=== PATIENT | male | born 1985 | race Caucasian/White ===

== ENCOUNTER 2017-07-25 07:50 | Day surgery (SDC) | payer OTHER ==
[~2017-07-25 07:50] MED LIST: Lactated Ringers 1,000 ML IV SCH; Sodium Chloride 0.9% 10 ML Syringe FLUSH PRN
[2017-07-25] MEDS ORDERED: Midazolam 1 MG/ML 2 ML SDV IV ONE (09:30)
[2017-07-25] MEDS ORDERED: Propofol 200 MG/20 ML SDV IV ONE (09:30)
[2017-07-25] MEDS ORDERED: Simethicone Drops 40 MG/0.6 ML 30 ML Bottle ONE (09:43)
--- NOTE | 2017-07-25 10:02 | PCM.OPNOTE ---
- General Post-Op/Procedure Note Date of Surgery/Procedure: 07/25/17 Operative Procedure(s): c scope with bx Findings: ascending and descending colon polyp Pre Op Diagnosis: colon polyp 1 st degree relative. below 50 Post-Op Diagnosis: ascending and descending colon polyp Anesthesia Technique: MAC Primary Surgeon: Loyd Irving Anesthesia Provider: Aletha Reyes Pathology: < ascending and descending colon polyp Complications: None Condition: Good Free Text/Narrative:: see dictation
--- NOTE | 2017-07-25 15:24 | OR ---
DATE OF OPERATION: 07/25/2017 SURGEON: Loyd Irving MD PROCEDURE PERFORMED: Colonoscopy with cold forceps biopsy. PREOPERATIVE DIAGNOSIS: Family history of colon polyps, first-degree relative, younger than age 50. POSTOPERATIVE DIAGNOSES: Ascending colon polyp and descending colon polyp. INDICATIONS FOR PROCEDURE: Mr. Gutierrez is a patient whose father has had a history of adenomatous colon polyp, in fact, he has had a colon resection due to a large adenomatous polyp, it was before the age of 50. I recommended that the patient undergo a screening colonoscopy in his 30s as a start for preventative endoscopy. DESCRIPTION OF OPERATION: After an excellent IV sedation was administered, digital rectal exam was performed. No marked abnormality was noted. Flexible colonoscope was inserted and advanced to the cecum without difficulty. The prep was excellent. The following findings were noted. Ascending colon, questionable polyp in the ascending colon, biopsied with cold biopsy forceps and sent for permanent. Transverse colon, unremarkable. Descending colon, questionable polyp, again biopsied with cold biopsy forceps and sent for permanent. Sigmoid and rectum unremarkable. Colon was deflated. Scope was removed. The patient was taken to recovery in good condition. Results by letter. /[id number] /MODL
== END 2017-07-25 10:50 | disposition home or self-care (01) ==
LOC: FB.SDS 07:50
PROVIDERS: ATTEND Surgery
DX: Z12.11 Encounter for screening for malignant neoplasm of colon (principal); K63.5 Polyp of colon; Z83.71 Family history of colonic polyps
CPT/HCPCS: 45380; 88305; A9270; J2250; J2704; J7120

== ENCOUNTER 2024-12-30 20:13 | Emergency (ER) | payer OTHER | END 2024-12-30 23:05 | disposition home or self-care (01) | LOC: FB.ED 20:13 | DX: S61.213A Laceration without foreign body of left middle finger without damage to nail, initial encounter (principal); W26.8XXA Contact with other sharp object(s), not elsewhere classified, initial encounter; Y93.89 Activity, other specified | CPT/HCPCS: 99282; 99283 ==